=== PATIENT | female | born 1970 | race Native Hawaiian/Other Pacific Islander ===

== ENCOUNTER 2021-08-20 08:29 | Outpatient (CLI) | payer OTHER ==
[2021-08-20 08:48] LABS: PLATELET COUNT 187 K/uL (152-353)
[2021-08-20 08:58] LABS: POTASSIUM 3.8 mmol/L (3.6-5.2)
== END 2021-08-20 19:11 | disposition home or self-care (01) ==
LOC: LABW 08:29 → US 08:29
PROVIDERS: ATTEND Internal Medicine
DX: R10.11 Right upper quadrant pain (principal); R11.2 Nausea with vomiting, unspecified
CPT/HCPCS: 36415; 80053; 82150; 83690; 85027

== ENCOUNTER 2022-01-16 08:02 | Outpatient (CLI) | payer OTHER | END 2022-01-16 18:51 | disposition home or self-care (01) | LOC: NM 08:02 | PROVIDERS: ATTEND Physician Assistant | DX: R11.2 Nausea with vomiting, unspecified (principal); R93.89 Abnormal findings on diagnostic imaging of other specified body structures; R10.11 Right upper quadrant pain | CPT/HCPCS: A9537 ==